=== PATIENT | male | born 1985 | race Caucasian/White ===

== ENCOUNTER 2022-02-13 06:07 | Outpatient (REF) | payer OTHER, SELFPAY ==
[2022-02-13 11:25] LABS: MANUAL DIFF FLAG NO
[2022-02-13 11:34] LABS: Basophils Absolute Auto 0.1 X10*3/uL (0.0-0.2); Basophils Percent Auto 1.1 % (0-2); Eosinophils Absolute Auto 0.3 X10*3/uL (0.0-0.4); Eosinophils Percent Auto 3.5 % (0-4); Hematocrit 46.3 % (42.0-52.0); Hemoglobin 15.2 g/dl (14.0-18.0); Imm Gran Abs Auto 0.05 X10*3/uL (0.00-0.03); Imm Gran Pct Auto 0.6 % (0.0-0.4); Lymphocytes Percent Auto 24.6 % (20-40); Mean Corpuscular HGB Conc 32.8 g/dl (31.0-36.0); Mean Corpuscular Volume 94.3 fL (80.0-98.0); Mean Platelet Volume 9.1 fL (9.4-12.4); Monocytes Absolute Auto 1.3 X10*3/uL (0.1-1.2); Monocytes Percent Auto 16.1 % (2-11); Neutrophils Absolute Auto 4.3 x10*3/uL (2.0-8.3); Neutrophils Percent Auto 54.1 % (45-73); Platelet Count 394 X10*3/uL (160-400); Red Blood Count 4.91 X10*6/uL (4.60-5.80); Red Cell Distribution Width 12.3 % (11.0-16.0)
[2022-02-13 11:55] LABS: Alanine Aminotransferase 66 U/L (0-40); Albumin Level 4.6 g/dL (3.5-5.0); Alkaline Phosphatase 85 U/L (39-117); Anion Gap 15 (12-20); Aspartate Amino Transferase 45 U/L (5-37); Bilirubin Total 1.3 mg/dL (0.0-1.0); Blood Urea Nitrogen 15 mg/dL (9-16); Calcium 9.9 mg/dL (8.4-10.2); Carbon Dioxide 28 mmol/L (22-29); Chloride 101 mmol/L (96-108); Cholesterol 243 mg/dL; Estimated Glomerular Filt Rate > 60; Glucose Fasting 101 mg/dL (60-99); HDL Cholesterol 64 mg/dL; LDL Cholesterol Calculated 148 mg/dl; Potassium 4.7 mmol/L (3.3-5.1); Sodium 139 mmol/L (135-145); Total Protein 8.7 g/dL (6.5-8.0); Triglycerides 159 mg/dL
[2022-02-13 12:06] LABS: Thyroid Stimulating Hormone 1.29 uIU/mL (0.32-4.0)
== END 2022-02-13 06:08 | disposition home or self-care (01) ==
LOC: HO.HMGCLDS 06:07
PROVIDERS: Visit Provider Nurse Practitioner Family
DX: Z00.00 Encounter for general adult medical examination without abnormal findings (principal)
CPT/HCPCS: 36415; 80053; 80061; 84443; 85025

== ENCOUNTER 2022-10-07 08:51 | Outpatient (REF) | payer OTHER, SELFPAY ==
[2022-10-07 12:07] LABS: Alanine Aminotransferase 52 U/L (0-40); Albumin Level 4.5 g/dL (3.5-5.0); Alkaline Phosphatase 79 U/L (39-117); Anion Gap 14 (12-20); Aspartate Amino Transferase 46 U/L (5-37); Bilirubin Total 1.7 mg/dL (0.0-1.0); Blood Urea Nitrogen 18 mg/dL (9-16); Calcium 10.1 mg/dL (8.4-10.2); Carbon Dioxide 27 mmol/L (22-29); Chloride 103 mmol/L (96-108); Estimated Glomerular Filt Rate > 60; Glucose Fasting 99 mg/dL (60-99); Potassium 4.8 mmol/L (3.3-5.1); Sodium 139 mmol/L (135-145); Total Protein 8.8 g/dL (6.5-8.0)
== END 2022-10-07 08:52 | disposition home or self-care (01) ==
LOC: HO.WFDLDS 08:51
PROVIDERS: Visit Provider Nurse Practitioner Family
DX: I10 Essential (primary) hypertension (principal); R74.8 Abnormal levels of other serum enzymes; R73.01 Impaired fasting glucose
CPT/HCPCS: 36415; 80053

== ENCOUNTER 2022-10-29 09:32 | Outpatient (REF) | payer OTHER, SELFPAY ==
--- NOTE | ~2022-10-29 | US_ITS ---
EXAMINATION: US ABDOMEN LIMITED CLINICAL INFORMATION: Abnormal levels of other serum enzymes. COMPARISON: None available. TECHNIQUE: Real-time imaging of the right upper quadrant abdominal viscera. FINDINGS: PANCREAS: No large abnormality in the expected region of the pancreas. Portions of the pancreas were obscured LIVER: The liver is normal in size. The liver contour is normal. There is diffuse increased liver parenchymal echogenicity, consistent with hepatic steatosis. No focal hepatic lesion. There is no intrahepatic biliary duct dilatation seen. GALLBLADDER: Normal. The gallbladder is physiologically distended without evidence of stones, sludge, polyps, wall thickening or pericholecystic fluid. COMMON BILE DUCT: Normal in caliber measuring 0.3 cm in diameter. RIGHT KIDNEY: No convincing perinephric fluid collection. No hydronephrosis. No renal calculi or focal parenchymal lesions. The kidney measures 9.7 cm in maximum dimension. FREE FLUID: None. US/US abdomen limited IMPRESSION: Diffuse increased hepatic density. This can be seen with fatty change No cholelithiasis or biliary dilation
== END 2022-10-29 09:33 | disposition home or self-care (01) ==
LOC: HO.US 09:32
PROVIDERS: Visit Provider Nurse Practitioner Family
DX: R74.8 Abnormal levels of other serum enzymes (principal)
CPT/HCPCS: 76705

== ENCOUNTER 2023-01-14 09:00 | Outpatient (AMB) | payer OTHER, SELFPAY ==
[2023-01-14 09:05] VITALS: BP 116/68; PULSE 105; RESP 14; TEMP 37.2; O2SAT 97; BMI 31.5
--- NOTE | 2023-01-14 09:05 | MHC.PC.OV ---
Vital Signs 01/14/23 09:05 01/14/23 09:36 Height 5 ft 5 in Weight 189 lb 6 oz BMI 31.5 BP 116/68 Blood Pressure Location Rt brachial Position Sitting Respiration 14 Pulse 105 H 88 Pulse Source Pulse Oximeter Auscultation Temp 98.9 F Temp Source Oral Pulse Oximetry (%) 97 Oxygen Delivery Method Room Air Intake Visit Reasons: 3 mos HTN Intake Note: Patient reports he is here for a follow up of high blood pressure. Patient reports no concerns at this time Food Analyst Required: No Accompanied by: Self / Same As Patient Allergies Penicillins Allergy (Mild, Verified 01/14/23 09:29) Hives Medication List - Last Reconciled 01/14/23 by Bg Anderson CNP losartan 50 mg PO DAILY 30 days Tobacco use date assessed: 07/02/22 HPI HPI Comments History of Present Illness Details 37-year-old male presents for hypertension follow-up. He is on losartan which he had admits to taking as prescribed. He denies acute symptoms at this time. He has history of elevated AST, ALT, and total bilirubin. Liver bile duct ultrasound revealed Diffuse increased hepatic density. This can be seen with fatty change. He admits to drinking 3-4 beers 2-3 times weekly. He notes he been drinking that much for 3-4 years. 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 How often do you have a drink containing alcohol?: 2-3 times a week 2. How many drinks containing alcohol do you have on a typical day when you are drinking?: 3 or 4 3. How often do you have six or more drinks on one occasion?: Never Total Score: 4 DARSHANA-7 AMB Questionnaire DARSHANA-7 Date DARSHANA - 7 assessed: 07/02/22 Source: Developed by Drs. James Hollingsworth, Page Casas, Arjun Pond and colleagues, with an educational yue from [employer]. Review of Systems Const Details: Const Denies chills, Denies fatigue, Denies fever(s), Denies headache(s) and Denies weakness ENT Denies dizziness and Denies headache(s) Card Denies chest pain, Denies lightheadedness, Denies dyspnea and Denies other (Palpitations) Resp Denies cough, Denies dyspnea, Denies wheezing and Denies other ( shortness of breath) GI Denies abdominal pain, Denies melena, Denies hematochezia, Denies change in bowel habits, Denies dyspepsia and Denies nausea Denies hematuria and Denies dysuria Musc Denies abnormal gait, Denies myalgias, Denies arthralgias, Denies numbness and Denies tingling Skin/Breast Denies rash, Denies unusual bruising and Denies wounds Neuro Denies abnormal gait, Denies dizziness, Denies headache(s), Denies memory loss, Denies numbness, Denies Sensory deficit (Neuro), Denies tingling and Denies weakness Psych Denies anxiety, Denies depression, Denies memory loss Endo Denies cold intolerance, Denies fatigue, Denies heat intolerance, Denies polydipsia and Denies polyuria Aller/Immun Denies wheezing Physical exam (Primary Care) Vital Signs: Last Vital Signs Temp 98.9 F 01/14/23 09:05 Pulse 105 H 01/14/23 09:05 Resp 14 01/14/23 09:05 BP 116/68 01/14/23 09:05 Pulse Ox 97 01/14/23 09:05 Oxygen Delivery Method Room Air 01/14/23 09:05 BMI result Body Mass Index 31.5 Tobacco/Smoking Status: Tobacco use Status Tobacco use date assessed 07/02/22 01/14/23 09:07 Patient Tobacco Use Status Never used Tobacco 01/14/23 09:07 e-Cigarette/Vaping Use Never Used 01/14/23 09:07 Thrive Assessment: Date of Thrive Assessment Date Thrive assessed 07/02/22 01/14/23 09:07 Const Other: General: no acute distress and well developed Nutritional Appearance: well nourished Orientation/consciousness: patient oriented x3 [facility] Head: Yes normocephalic and Yes atraumatic Eyes General: appearance normal, both eyes and all related structures Pupils: Equal, round and reactive pupils present EOM: EOMs intact bilaterally Resp Effort & Inspection: normal respiratory effort Auscultation: clear to auscultation bilaterally Cardio Rate: regular rate Rhythm: regular rhythm Heart sounds: S1 normal heart sound present, S2 normal heart sound present, no gallops, no murmurs and no rubs GI Palpation (GI): No Abdominal aortic bruit present, Soft to palpation, nontender, No hepatosplenomegaly present and No Rebound tenderness present Auscultation: normal bowel sounds General: Yes no CVA tenderness Back/Spine/Pelvis Back: no CVA tenderness Cervical Spine: cervical ROM normal and No Cervical spine tenderness Thoracic/Lumbar Spine: thoraco-lumbar ROM normal, No pain with thoraco-lumbar ROM, No thoracic spinal tenderness and No lumbar spinal tenderness Extrem General: Yes normal to inspection, No edema and No calf tenderness Skin General: warm and dry. Normal skin color. Normal skin turgor Lesions: no lesions Rashes: no rashes Trauma: no lacerations or abrasions Wounds: no wounds Nails: normal Neuro General: patient oriented x3, gait normal and no focal neuro deficit Cranial nerves: Yes Equal, round and reactive pupils present Cognition (Neuro): normal cognition Gait exam (Neuro): Normal gait present Sensory Exam: No Sensory deficit (Neuro) Psych Appearance: grossly normal Affect: normal affect Attitude: cooperative Thought process: Normal thought process present Assessment and Plan Assessment & Plan (1) HTN, goal below 140/90: Code(s): I10 - Essential (primary) hypertension Plan: Blood pressure is 116/68, within goal of less than 140/90 Continue with current treatment regimen Low-sodium diet encouraged Follow-up in 3 months or return sooner with symptoms or concerns Verbalized understanding and agreed with treatment plan. (2) Hyperlipidemia: Code(s): E78.5 - Hyperlipidemia, unspecified Plan: He has history of slightly elevated triglycerides, total cholesterol and LDL levels. Normal HDL level Advised to limit foods high in saturated fat and avoid foods high trans fat Routine exercise encouraged Verbalized understanding and agreed with treatment plan. (3) Nonalcoholic fatty liver disease: Code(s): K76.0 - Fatty (change of) liver, not elsewhere classified Plan: He has history of elevated AST, ALT, and total bilirubin Liver bile duct ultrasound revealed Diffuse increased hepatic density. This can be seen with fatty change Likely related to fatty liver disease or excessive alcohol intake Routine exercise encouraged Advised to cut down or avoid alcohol consumption Follow-up with symptoms or concerns Verbalized understanding and agreed with treatment plan. (4) Obesity (BMI 30.0-34.9): Code(s): E66.9 - Obesity, unspecified Plan: He weighs 189 lb, BMI is 31.5 Healthy dietary choices and routine exercise encouraged Informed that with reduction may improve his cholesterol levels and liver enzymes May referred to dietitian if desires Advised to follow-up with symptoms or concerns Verbalized understanding and agreed with treatment plan. Coding Level of Care Code Est Pt Level 3 (57059) Diagnoses HTN, goal below 140/90 I10 Hyperlipidemia E78.5 Nonalcoholic fatty liver disease K76.0 Obesity (BMI 30.0-34.9) E66.9
[2023-01-14 09:36] VITALS: PULSE 88
== END 2023-01-14 09:40 | disposition home or self-care (01) ==
PROVIDERS: PCP Nurse Practitioner Family; Visit Provider Nurse Practitioner Family
DX: I10 Essential (primary) hypertension (principal); E78.5 Hyperlipidemia, unspecified; E66.9 Obesity, unspecified; Z68.31 Body mass index [BMI] 31.0-31.9, adult; K76.0 Fatty (change of) liver, not elsewhere classified
CPT/HCPCS: 99213

== ENCOUNTER 2023-06-24 15:40 | Outpatient (AMB) | payer OTHER, SELFPAY ==
--- NOTE | 2023-06-24 15:45 | A.OFFPC_ITS ---
Vital Signs 06/24/23 15:48 Height 5 ft 5 in Weight 189 lb BMI 31.4 BP 118/80 Blood Pressure Location Lt brachial Position Sitting Pulse 95 Pulse Oximetry (%) 96 Oxygen Delivery Method Room Air Intake Visit Reasons: HTN Follow up Intake Note: Patient is here for hypertension follow up. Allergies Penicillins Allergy (Mild, Verified 06/24/23 15:49) Hives Tobacco use date assessed: 06/24/23 Dental Screening Dental Screen Date: 06/24/23 Did you have a dental visit in the last 12 months?: Yes Did you have a dental problem in the last 6 months where you did not have access to dental care?: No Was dental information given to patient?: Patient has dentist HPI HTN Follow up HPI Details 37 y/o male presents to f/u hypertension . Had been started on lisinopril but had complaints of a cough so had been switched to losartan 50mg. Blood pressure today 118/80. He is on losartan 50mg daily. He has a blood pressure monitor at home as well. 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 Cognitive needs: No Hearing needs: No Vision needs: No Questionnaire PHQ-9 Over the last 2 weeks, how often have you been bothered by any of the following problems? 1. Little interest or pleasure in doing things: not at all 2. Feeling down, depressed, or hopeless: not at all 3. Trouble falling or staying asleep, or sleeping too much: not at all 4. Feeling tired or having little energy: not at all 5. Poor appetite or overeating: not at all 6. Feeling bad about yourself - or that you are a failure or have let yourself or your family down: not at all 7. Trouble concentrating on things, such as reading the newspaper or watching television: not at all 8. Moving or speaking so slowly that other people could have noticed. Or the opposite - being so fidgety or restless that you have been moving around a lot more than usual: not at all 9. Thoughts that you would be better off or of hurting yourself in some way: not at all Total score: 0 Depression Screening Interpretation: Negative Depression Screening Done: Yes Source: Developed by Drs. James Hollingsworth, Page Casas, Arjun Pond and colleagues, with an educational yue from [employer]. Thrive Questionnaire Date Thrive assessed: 06/24/23 I am a: Patient What is your living situation today?: I have a steady place to live Within the past 12 months, did the food you bought not last and you didn't have the money to get more?: Never true Within the past 12 months, did you worry whether your food would run out before you got money to buy more?: Never true Do you have trouble paying for medicines?: No Do you have trouble getting transportation to medical appointments?: No Do you have trouble paying your heating and electricity bill?: No Do you have trouble taking care of your child, family member or friend?: No Do you have trouble with day-to-day activities such as bathing, preparing meals, shopping, managing finances, etc.?: No Are you currently unemployed and looking for a job?: No Are you interested in more education?: No THRIVE Score: 0 AUDIT C Alcohol Use Questionnaire (AUDIT-C) 1. How often do you have a drink containing alcohol?: 4 or more times a week 2. How many drinks containing alcohol do you have on a typical day when you are drinking?: 1 or 2 3. How often do you have six or more drinks on one occasion?: Never Total Score: 4 DARSHANA-7 AMB Questionnaire DARSHANA-7 Date DARSHANA - 7 assessed: 06/24/23 Feeling nervous, anxious, or on edge: 0 = Not at all Not being able to stop or control worryin = Not at all Worrying too much about different things: 0 = Not at all Trouble relaxin = Not at all Being so restless that it is hard to sit still: 0 = Not at all Becoming easily annoyed or irritable: 0 = Not at all Feeling afraid as if something awful might happen: 0 = Not at all Total DARSHANA-7 score (0-4 normal; 5-9 mild; 10-14 moderate; 15-21 severe): 0 Source: Developed by Drs. James Hollingsworth, Page Casas, Arjun Pond and colleagues, with an educational yue from [employer]. Review of Systems Const Denies chills, Denies fatigue, Denies fever(s), Denies headache(s) and Denies weakness ENT Denies dizziness and Denies headache(s) Card Denies chest pain, Denies lightheadedness, Denies dyspnea and Denies other (Palpitations) Resp Denies cough, Denies dyspnea, Denies wheezing and Denies other ( shortness of breath) Musc Denies numbness and Denies tingling Neuro Denies dizziness, Denies headache(s), Denies numbness, Denies tingling, Denies paresthesias and Denies weakness Psych Denies anxiety and Denies depression Endo Denies fatigue Aller/Immun Denies wheezing Physical exam (Primary Care) Vital Signs: Last Vital Signs Pulse 95 06/24/23 15:48 BP 118/80 06/24/23 15:48 Pulse Ox 96 06/24/23 15:48 Oxygen Delivery Method Room Air 06/24/23 15:48 BMI result Body Mass Index 31.4 Tobacco/Smoking Status: Tobacco use Status Tobacco use date assessed 06/24/23 06/24/23 15:50 Patient Tobacco Use Status Never used Tobacco 06/24/23 15:46 e-Cigarette/Vaping Use Never Used 06/24/23 15:46 PHQ-9: PHQ-9 Score PHQ-9: Total score 0 06/24/23 15:57 Depression Screening Interpretation: Negative Thrive Assessment: Date of Thrive Assessment Date Thrive assessed 06/24/23 06/24/23 15:57 Const General: no acute distress and well developed Nutritional Appearance: well nourished and obese Orientation/consciousness: patient oriented x3 [facility] Head: Yes normocephalic and Yes atraumatic Eyes General: appearance normal, both eyes and all related structures Pupils: Equal, round and reactive pupils present EOM: EOMs intact bilaterally Resp Effort & Inspection: normal respiratory effort Auscultation: clear to auscultation bilaterally Cardio Rate: regular rate Rhythm: regular rhythm Heart sounds: S1 normal heart sound present, S2 normal heart sound present, no gallops, no murmurs and no rubs Neuro General: patient oriented x3 and gait normal Cranial nerves: Yes Equal, round and reactive pupils present Psych Affect: normal affect Assessment and Plan Assessment & Plan (1) HTN, goal below 140/90: Code(s): I10 - Essential (primary) hypertension Plan: Blood?pressure?is?well?controlled.??Goal?is?less?than?140/90 Continue?losartan Encouraged?weight?loss (2) Nonalcoholic fatty liver disease: Code(s): K76.0 - Fatty (change of) liver, not elsewhere classified Plan: Patient?has?had?elevated?liver?enzymes?and?ultrasound?showed?hepatic?steatosis Encouraged?weight?loss?and?good?hydration Will?follow (3) Obesity (BMI 30.0-34.9): Code(s): E66.9 - Obesity, unspecified Plan: Discussed?weight?loss?with?patient. As?above,?patient?has?had?elevated?liver?enzymes?and?hepatic?steatosis?so?I?have ?recommended?he?work?on?a?5-10?lb?weight?loss?between?now?and?his?next?visit Coding Level of Care Code Est Pt Level 4 (86412) Diagnoses HTN, goal below 140/90 I10 Nonalcoholic fatty liver disease K76.0 Obesity (BMI 30.0-34.9) E66.9
[2023-06-24 15:48] VITALS: BP 118/80; PULSE 95; O2SAT 96; BMI 31.4
== END 2023-06-24 16:18 | disposition home or self-care (01) ==
PROVIDERS: PCP Nurse Practitioner Family; Visit Provider Family Medicine
DX: I10 Essential (primary) hypertension (principal); K76.0 Fatty (change of) liver, not elsewhere classified; E66.9 Obesity, unspecified; Z68.31 Body mass index [BMI] 31.0-31.9, adult
CPT/HCPCS: 99214

== ENCOUNTER 2023-10-26 08:51 | Outpatient (REF) | payer OTHER, SELFPAY ==
[2023-10-26 11:57] LABS: Estimated Average Glucose 100 mg/dL; Hemoglobin A1c % 5.1 % (<6.0)
[2023-10-26 12:02] LABS: Alanine Aminotransferase 29 U/L (0-40); Albumin Level 4.2 g/dL (3.5-5.0); Alkaline Phosphatase 65 U/L (39-117); Anion Gap 11 (12-20); Aspartate Amino Transferase 40 U/L (5-37); Bilirubin Total 2.8 mg/dL (0.0-1.0); Blood Urea Nitrogen 16 mg/dL (9-16); Calcium 9.4 mg/dL (8.4-10.2); Carbon Dioxide 28 mmol/L (22-29); Chloride 104 mmol/L (96-108); Cholesterol 255 mg/dL (<200); Estimated Glomerular Filt Rate > 60; Glucose Fasting 102 mg/dL (60-99); HDL Cholesterol 61 mg/dL (>40); LDL Cholesterol Calculated 115 mg/dL (<100); Potassium 3.8 mmol/L (3.3-5.1); Sodium 139 mmol/L (135-145); Total Protein 8.4 g/dL (6.5-8.0); Triglycerides 399 mg/dL (<150)
[2023-10-26 12:18] LABS: TSH reflex Free T4 1.31 uIU/mL (0.32-4.0)
== END 2023-10-26 08:52 | disposition home or self-care (01) ==
LOC: HO.WFDLDS 08:51
PROVIDERS: Visit Provider Family Medicine
DX: Z00.00 Encounter for general adult medical examination without abnormal findings (principal); R73.01 Impaired fasting glucose; I10 Essential (primary) hypertension
CPT/HCPCS: 36415; 80053; 80061; 83036; 84443

== ENCOUNTER 2023-10-28 09:04 | Outpatient (AMB) | payer OTHER, SELFPAY ==
[2023-10-28 09:16] VITALS: BP 144/90; PULSE 85; RESP 14; TEMP 36.4; O2SAT 97; BMI 30.8
--- NOTE | 2023-10-28 09:16 | A.OFFPC_ITS ---
Vital Signs 10/28/23 09:16 Height 5 ft 5 in Weight 185 lb 6 oz BMI 30.8 BP 144/90 H Blood Pressure Location Rt brachial Position Sitting Respiration 14 Pulse 85 Pulse Source Pulse Oximeter Temp 97.5 F Temp Source Temporal Artery Scan Pulse Oximetry (%) 97 Oxygen Delivery Method Room Air Intake Visit Reasons: Annual PE Intake Note: Patient does not have any current concerns. 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 Required: No Accompanied by: Self / Same As Patient Allergies Penicillins Allergy (Mild, Verified 10/28/23 09:20) Hives Medication List - Last Reconciled 10/28/23 by Dennis Neves MD losartan 50 mg PO DAILY 30 days Tobacco use date assessed: 10/28/23 Dental Screening Dental Screen Date: 10/28/23 Did you have a dental visit in the last 12 months?: Yes Did you have a dental problem in the last 6 months where you did not have access to dental care?: No Was dental information given to patient?: Patient has dentist HPI Annual PE HPI Details 38 y/o male presents for a CPE with f/u labs and health maintenance. Labs were drawn 10/26/23. Reviewed labs with pt. Elevated fasting glucose of 102. A1c 5.1%. Elevated AST of 40. Triglycerides 399. TC 255. LDL 115. HDL 61. Pt reports ongoing life stressors. He declines a therapist today. Blood pressure today 144/90. He is on losartan 50mg daily. 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 1. Little interest or pleasure in doing things: not at all 2. Feeling down, depressed, or hopeless: not at all 3. Trouble falling or staying asleep, or sleeping too much: not at all 4. Feeling tired or having little energy: not at all 5. Poor appetite or overeating: not at all 6. Feeling bad about yourself - or that you are a failure or have let yourself or your family down: not at all 7. Trouble concentrating on things, such as reading the newspaper or watching television: not at all 8. Moving or speaking so slowly that other people could have noticed. Or the opposite - being so fidgety or restless that you have been moving around a lot more than usual: not at all 9. Thoughts that you would be better off or of hurting yourself in some way: not at all Total score: 0 Depression Screening Interpretation: Negative Depression Screening Done: Yes 40743 - PHQ-9 Billing: Yes Source: Developed by Drs. James Hollingsworth, Page Casas, Arjun Pond and colleagues, with an educational yue from [employer]. Thrive Questionnaire Date Thrive assessed: 10/28/23 I am a: Patient What is your living situation today?: I have a steady place to live Within the past 12 months, did the food you bought not last and you didn't have the money to get more?: Never true Within the past 12 months, did you worry whether your food would run out before you got money to buy more?: Never true Do you have trouble paying for medicines?: No Do you have trouble getting transportation to medical appointments?: No Do you have trouble paying your heating and electricity bill?: No Do you have trouble taking care of your child, family member or friend?: No Do you have trouble with day-to-day activities such as bathing, preparing meals, shopping, managing finances, etc.?: No Are you currently unemployed and looking for a job?: No Are you interested in more education?: No Please select the resources that you would like help with: None Currently or been in a relationship where the following occur: No concerns reported THRIVE Score: 0 AUDIT C Alcohol Use Questionnaire (AUDIT-C) 1. How often do you have a drink containing alcohol?: 4 or more times a week 2. How many drinks containing alcohol do you have on a typical day when you are drinking?: 3 or 4 3. How often do you have six or more drinks on one occasion?: Never Total Score: 5 DARSHANA-7 AMB Questionnaire DARSHANA-7 Date DARSHANA - 7 assessed: 10/28/23 Feeling nervous, anxious, or on edge: 0 = Not at all Not being able to stop or control worryin = Not at all Worrying too much about different things: 0 = Not at all Trouble relaxin = Not at all Being so restless that it is hard to sit still: 0 = Not at all Becoming easily annoyed or irritable: 0 = Not at all Feeling afraid as if something awful might happen: 0 = Not at all Total DARSHANA-7 score (0-4 normal; 5-9 mild; 10-14 moderate; 15-21 severe): 0 Source: Developed by Drs. James Hollingsworth, Page Casas, Arjun Pond and colleagues, with an educational yue from [employer]. DARSHANA-7 Assessment Billing DARSHANA-7 Assessment Tool: DARSHANA-7 Assessment 66853 Review of Systems Const Denies chills, Denies fatigue, Denies fever(s), Denies headache(s) and Denies weakness Eyes Denies change in vision ENT Denies dizziness, Denies headache(s), Denies hearing loss, Denies nasal congestion, Denies sinus pain, Denies sinus pressure and Denies sore throat Card Denies chest pain, Denies lightheadedness, Denies dyspnea and Denies other (palpitations) Resp Denies cough, Denies dyspnea and Denies wheezing GI Denies abdominal pain, Denies melena, Denies hematochezia, Denies change in bowel habits, Denies dyspepsia and Denies nausea Denies hematuria and Denies dysuria Musc Denies abnormal gait, Denies myalgias, Denies arthralgias, Denies numbness and Denies tingling Skin/Breast Denies rash, Denies unusual bruising and Denies wounds Neuro Denies abnormal gait, Denies dizziness, Denies headache(s), Denies memory loss, Denies numbness, Denies Sensory deficit (Neuro), Denies tingling and Denies we akness Psych Denies anxiety, Denies depression and Denies memory loss Endo Denies cold intolerance, Denies fatigue, Denies heat intolerance, Denies po lydipsia and Denies polyuria Loc/Lymph Denies easy bleeding and Denies easy bruising Aller/Immun Denies wheezing Physical exam (Primary Care) Vital Signs: Last Vital Signs Temp 97.5 F 10/28/23 09:16 Pulse 85 10/28/23 09:16 Resp 14 10/28/23 09:16 BP 144/90 H 10/28/23 09:16 Pulse Ox 97 10/28/23 09:16 Oxygen Delivery Method Room Air 10/28/23 09:16 BMI result Body Mass Index 30.8 Tobacco/Smoking Status: Tobacco use Status Tobacco use date assessed 10/28/23 10/28/23 09:22 Patient Tobacco Use Status Never used Tobacco 10/28/23 09:16 e-Cigarette/Vaping Use Never Used 10/28/23 09:16 PHQ-9: PHQ-9 Score PHQ-9: Total score 0 10/28/23 09:45 Depression Screening Interpretation: Negative Thrive Assessment: Date of Thrive Assessment Date Thrive assessed 10/28/23 10/28/23 09:22 Currently or been in a relationship where the following occur: No concerns reported Const General: no acute distress, well developed, alert and awake Nutritional Appearance: well nourished Orientation/consciousness: patient oriented x3 HENMT Head: Yes normocephalic and Yes atraumatic Ears: hearing grossly normal bilaterally and TM's normal bilaterally General nose exam: Normal external nose present and Normal nares present Mouth: Normal oral and palatal mucosa present and moist mucous membranes Teeth and gingiva: dentition normal Throat: Yes posterior oropharynx normal Eyes General: appearance normal, both eyes and all related structures Pupils: Equal, round and reactive pupils present and Pupil accommodation reflex normal EOM: EOMs intact bilaterally Neck Neck: Yes normal visual inspection, Yes no lymphadenopathy and Yes trachea midline Thyroid: Thyroid normal Carotids: no bruits Lymphatic: no lymphadenopathy noted Chest Chest palpation & inspection: normal inspection of the chest Resp Effort & Inspection: normal respiratory effort Auscultation: clear to auscultation bilaterally Cardio Rate: regular rate Rhythm: regular rhythm Heart sounds: S1 normal heart sound present, S2 normal heart sound present, no gallops, no murmurs and no rubs Bruits: no abdominal aortic bruits and no carotid bruits GI Palpation (GI): No Abdominal aortic bruit present, Soft to palpation, nontender, No hepatosplenomegaly present and No Rebound tenderness present Auscultation: normal bowel sounds General: Yes no CVA tenderness Back/Spine/Pelvis Back: no CVA tenderness Cervical Spine: cervical ROM normal and No Cervical spine tenderness Thoracic/Lumbar Spine: thoraco-lumbar ROM normal, No pain with thoraco-lumbar ROM, No thoracic spinal tenderness and No lumbar spinal tenderness Skin Lesions: no lesions Rashes: no rashes Trauma: no lacerations or abrasions Wounds: no wounds Nails: normal Neuro General: patient oriented x3 Cranial nerves: Yes Equal, round and reactive pupils present Cognition (Neuro): normal cognition Gait exam (Neuro): Normal gait present Motor exam (neuro): 5/5 motor strength present throughout Sensory Exam: No Sensory deficit (Neuro) Deep tendon reflexes (DTR's): Right patellar reflex intensity grade: 2+ and Left patellar reflex intensity grade: 2+ Extrem General: Yes normal to inspection and No edema Psych Appearance: grossly normal Affect: normal affect Attitude: cooperative Thought process: Normal thought process present Assessment and Plan Assessment & Plan (1) Adult general medical exam: Code(s): Z00.00 - Encounter for general adult medical examination without abnormal findings Plan: 38-year-old?male?presents?for?an?complete?physical?exam Encouraged?healthy?diet?with?active?lifestyle?and?plenty?of?exercise (2) Hypertriglyceridemia: Code(s): E78.1 - Pure hyperglyceridemia Plan: Triglycerides?are?too?high Start?fenofibrate Will?recheck?at?next?lab?draw (3) HTN, goal below 140/90: Code(s): I10 - Essential (primary) hypertension Plan: Blood?pressure?is?a?little?too?high.??Goal?is?less?than?140/90 Has?been?controlled?previously.??Will?recheck?at?next?visit?and?if?still?elevate d,?will?adjust?his?medications. He?can?check?his?blood?pressures?at?[facility]?and?he?will?let?me?know?if?it?is?too?high?there?as?well. (4) Elevated liver enzymes: Code(s): R74.8 - Abnormal levels of other serum enzymes Plan: Mild?elevation?in?liver?enzymes.??He?has?been?losing?weight?and?I?encouraged?him ?to?continue?this. Liver?enzymes?have?been?decreasing. (5) Elevated fasting glucose: Code(s): R73.01 - Impaired fasting glucose Plan: A1c?is?in?normal?range Likely?mild?insulin?resistance. Will?continue?to?monitor Orders: Orders Lipid Panel Today E78.1 - Pure hyperglyceridemia Comprehensive [place]. Panel Fast Today E78.1 - Pure hyperglyceridemia Medications: New fenofibrate 160 mg PO DAILY 30 days 30 tabs 2RF Coding Level of Care Code Est Pt Level 3 (32301) Est Pt Prev Care 18-39y(92003) Diagnoses Adult general medical exam Z00.00 Hypertriglyceridemia E78.1 HTN, goal below 140/90 I10 Elevated liver enzymes R74.8 Elevated fasting glucose R73.01 Additional Codes DARSHANA-7 Assessment Billing - DARSHANA-7 Assessment Tool: DARSHANA-7 Assessment 38834 ([id number])
== END 2023-10-28 10:21 | disposition home or self-care (01) ==
PROVIDERS: PCP Family Medicine; Visit Provider Family Medicine
DX: Z00.00 Encounter for general adult medical examination without abnormal findings (principal); E78.1 Pure hyperglyceridemia; I10 Essential (primary) hypertension; R74.8 Abnormal levels of other serum enzymes; R73.01 Impaired fasting glucose
CPT/HCPCS: 99213; 99395

== ENCOUNTER 2024-01-27 08:43 | Outpatient (REF) | payer OTHER, SELFPAY ==
[2024-01-27 12:05] LABS: Appearance Urine Clear; Color Urine Yellow; Glucose Urine UA Negative (Negative); Leukocyte Esterase Urine Negative (Negative); Nitrite Urine Negative (Negative); Urine Blood Negative (Negative); Urine Ketones Negative (Negative); Urine Protein Negative (Neg-Trace)
[2024-01-27 12:13] LABS: Alanine Aminotransferase 28 U/L (0-40); Albumin Level 4.3 g/dL (3.5-5.0); Alkaline Phosphatase 61 U/L (39-117); Anion Gap 9 (12-20); Aspartate Amino Transferase 32 U/L (5-37); Bilirubin Total 0.8 mg/dL (0.0-1.0); Blood Urea Nitrogen 14 mg/dL (9-16); Calcium 9.9 mg/dL (8.4-10.2); Carbon Dioxide 30 mmol/L (22-29); Chloride 104 mmol/L (96-108); Cholesterol 223 mg/dL (<200); Estimated Glomerular Filt Rate > 60; Glucose Fasting 100 mg/dL (60-99); HDL Cholesterol 74 mg/dL (>40); LDL Cholesterol Calculated 110 mg/dL (<100); Potassium 4.4 mmol/L (3.3-5.1); Sodium 139 mmol/L (135-145); Total Protein 8.3 g/dL (6.5-8.0); Triglycerides 198 mg/dL (<150)
[2024-01-27 12:32] LABS: Creatinine Urine 234.63 mg/dL; Microalbum/Creatinine Ratio Ur 3.4 ug/mg cr (<30)
== END 2024-01-27 08:44 | disposition home or self-care (01) ==
LOC: HO.WFDLDS 08:43
PROVIDERS: Visit Provider Family Medicine
DX: Z00.00 Encounter for general adult medical examination without abnormal findings (principal); I10 Essential (primary) hypertension; E78.1 Pure hyperglyceridemia
CPT/HCPCS: 36415; 80053; 80061; 81003; 82043; 82570

== ENCOUNTER 2024-02-17 09:40 | Outpatient (AMB) | payer OTHER, SELFPAY ==
--- NOTE | 2024-02-17 10:23 | MHC.PC.OV ---
Vital Signs 02/17/24 10:24 Height 5 ft 5 in Weight 186 lb 2 oz BMI 31.0 BP 148/87 H Blood Pressure Location Rt brachial Position Sitting Respiration 16 Pulse 86 Pulse Source Pulse Oximeter Temp 99.7 F Temp Source Temporal Artery Scan Pulse Oximetry (%) 97 Oxygen Delivery Method Room Air Intake Visit Reasons: f/u hypertriglyceridemia, hypertension Intake Note: f/u for hypertriglyceridemia and htn Allergies Penicillins Allergy (Mild, Verified 02/17/24 10:23) Hives Medication List - Last Reconciled 02/17/24 by Dennis Neves MD fenofibrate 160 mg PO DAILY 30 days losartan 50 mg PO DAILY 30 days Tobacco use date assessed: 10/28/23 Dental Screening Dental Screen Date: 10/28/23 HPI f/u hypertriglyceridemia, hypertension HPI Details 38 y/o male presents to f/u hypertriglyceridemia, hypertension. Notes he is tolerating fenofibrate 160mg daily. Labs drawn 01/27/24. Reviwed labs with pt. Triglycerides improved from 399 to 198. TC 223. LDL 110. HDL 74. Blood pressure today 148/87, 86p. He is on losartan 50mg daily. HPI Comments History of Present Illness Details Documentation assistance for Dennis Neves MD, was provided by Brandon Moore,? Film Process Operator on 02/17/2024 at 10:42 AM HEMA. I, Dr. Neves, have read, observed, and verified documentation. 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 1. Little interest or pleasure in doing things: not at all 2. Feeling down, depressed, or hopeless: not at all 3. Trouble falling or staying asleep, or sleeping too much: not at all 4. Feeling tired or having little energy: not at all 5. Poor appetite or overeating: not at all 6. Feeling bad about yourself - or that you are a failure or have let yourself or your family down: not at all 7. Trouble concentrating on things, such as reading the newspaper or watching television: not at all 8. Moving or speaking so slowly that other people could have noticed. Or the opposite - being so fidgety or restless that you have been moving around a lot more than usual: not at all 9. Thoughts that you would be better off or of hurting yourself in some way: not at all Total score: 0 Source: Developed by Drs. James Hollingsworth, Page Casas, Arjun Pond and colleagues, with an educational yue from [employer]. Thrive Questionnaire Date Thrive assessed: 10/28/23 I am a: Patient What is your living situation today?: I have a steady place to live Within the past 12 months, did the food you bought not last and you didn't have the money to get more?: I choose not to answer this question Within the past 12 months, did you worry whether your food would run out before you got money to buy more?: I choose not to answer this question Do you have trouble paying for medicines?: I choose not to answer this question Do you have trouble getting transportation to medical appointments?: No Do you have trouble paying your heating and electricity bill?: No Do you have trouble taking care of your child, family member or friend?: No Do you have trouble with day-to-day activities such as bathing, preparing meals, shopping, managing finances, etc.?: No Are you currently unemployed and looking for a job?: No Are you interested in more education?: No Please select the resources that you would like help with: None Currently or been in a relationship where the following occur: I choose not to answer THRIVE Score: 0 AUDIT C Alcohol Use Questionnaire (AUDIT-C) 1. How often do you have a drink containing alcohol?: 2-3 times a week Total Score: 3 DARSHANA-7 AMB Questionnaire DARSHANA-7 Date DARSHANA - 7 assessed: 10/28/23 Feeling nervous, anxious, or on edge: 0 = Not at all Not being able to stop or control worryin = Not at all Worrying too much about different things: 0 = Not at all Trouble relaxin = Not at all Being so restless that it is hard to sit still: 0 = Not at all Becoming easily annoyed or irritable: 0 = Not at all Feeling afraid as if something awful might happen: 0 = Not at all Total DARSHANA-7 score (0-4 normal; 5-9 mild; 10-14 moderate; 15-21 severe): 0 Source: Developed by Drs. James Hollingsworth, Page Casas, Arjun Pond and colleagues, with an educational yue from [employer]. Review of Systems Const Denies chills, Denies fatigue, Denies fever(s), Denies headache(s) and Denies weakness ENT Denies dizziness and Denies headache(s) Card Denies dyspnea Resp Denies cough, Denies dyspnea, Denies wheezing and Denies other (shortness of breath) Musc Denies numbness and Denies tingling Neuro Denies dizziness, Denies headache(s), Denies numbness, Denies tingling and Denies weakness Psych Denies anxiety and Denies depression Endo Denies fatigue Aller/Immun Denies wheezing Physical exam (Primary Care) Vital Signs: Last Vital Signs Temp 99.7 F 02/17/24 10:24 Pulse 86 02/17/24 10:24 Resp 16 02/17/24 10:24 BP 148/87 H 02/17/24 10:24 Pulse Ox 97 02/17/24 10:24 Oxygen Delivery Method Room Air 02/17/24 10:24 BMI result Body Mass Index 31.0 Tobacco/Smoking Status: Tobacco use Status Tobacco use date assessed 10/28/23 02/17/24 10:27 Patient Tobacco Use Status Never used Tobacco 02/17/24 10:27 e-Cigarette/Vaping Use Never Used 02/17/24 10:27 PHQ-9: PHQ-9 Score PHQ-9: Total score 0 02/17/24 10:27 Thrive Assessment: Date of Thrive Assessment Date Thrive assessed 10/28/23 02/17/24 10:27 Currently or been in a relationship where the following occur: I choose not to answer Const General: well developed; No acute distress Nutritional Appearance: well nourished Orientation/consciousness: patient oriented x3 HENMT Head: Yes normocephalic and Yes atraumatic Eyes General: appearance normal, both eyes and all related structures Pupils: Equal, round and reactive pupils present EOM: EOMs intact bilaterally Resp Effort & Inspection: normal respiratory effort Auscultation: clear to auscultation bilaterally Cardio Rate: regular rate Rhythm: regular rhythm Heart sounds: S1 normal heart sound present, S2 normal heart sound present, no gallops, no murmurs and no rubs Neuro General: patient oriented x3 and gait normal Cranial nerves: Yes Equal, round and reactive pupils present Psych Affect: normal affect Coding Level of Care Code Est Pt Level 3 (99956) Diagnoses Hypertriglyceridemia E78.1 HTN, goal below 140/90 I10 Elevated fasting glucose R73.01 Assessment & Plan Assessment & Plan (1) Hypertriglyceridemia: Code(s): E78.1 - Pure hyperglyceridemia Category: Medical Plan: Triglycerides?much?improved?on?fenofibrate Continue?as?prescribed Work?at?a?diet?lower?in?saturated?fats?and?cholesterol Work?at?weight?loss (2) HTN, goal below 140/90: Code(s): I10 - Essential (primary) hypertension Category: Medical Plan: Blood?pressure?is?still?too?high Increase?losartan (3) Elevated fasting glucose: Code(s): R73.01 - Impaired fasting glucose Category: Medical Plan A1c?5.3%?is?still?in?normal?range?though?higher?than?last?check;?5.1% Encouraged?weight?loss?and?diet?lower?in?sugars?and?starches Medications: Changed From losartan 50 mg PO DAILY 30 days 30 tabs 4RF To losartan 100 mg PO DAILY 30 days 30 tabs 4RF From fenofibrate 160 mg PO DAILY 30 days 30 tabs 2RF To fenofibrate 160 mg PO DAILY 90 days 90 tabs 3RF
[2024-02-17 10:24] VITALS: BP 148/87; PULSE 86; RESP 16; TEMP 37.6; O2SAT 97; BMI 31.0
== END 2024-02-17 10:49 | disposition home or self-care (01) ==
LOC: HO.HMCFM 09:41
PROVIDERS: PCP Family Medicine; Visit Provider Family Medicine
DX: E78.1 Pure hyperglyceridemia (principal); I10 Essential (primary) hypertension; R73.01 Impaired fasting glucose

== ENCOUNTER → 2024-02-17 09:40 | Outpatient (BNVA) | payer OTHER, SELFPAY | PROVIDERS: PCP Family Medicine; Visit Provider Family Medicine | DX: E78.1 Pure hyperglyceridemia (principal); I10 Essential (primary) hypertension; R73.01 Impaired fasting glucose; Z79.899 Other long term (current) drug therapy | CPT/HCPCS: 83036; 96127 ==

== ENCOUNTER 2024-08-31 13:27 | Outpatient (AMB) | payer OTHER, SELFPAY ==
--- NOTE | 2024-08-31 13:32 | MHC.PC.OV ---
Vital Signs 08/31/24 13:35 Height 5 ft 5 in Weight 184 lb 2 oz BMI 30.6 BP 132/80 Blood Pressure Location Lt brachial Position Sitting Respiration 14 Temp 98.0 F Temp Source Oral Pulse Oximetry (%) 99 Oxygen Delivery Method Room Air Intake Visit Reasons: f/u hypertension, HLD Intake Note: patient is scehduled for follow-up for hypertension,HLD and has no concerns. Allergies Penicillins Allergy (Mild, Verified 08/31/24 13:34) Hives Medication List - Last Reconciled 08/31/24 by Dennis Neves MD fenofibrate 160 mg PO DAILY 90 days losartan 100 mg PO DAILY 30 days Tobacco use date assessed: 08/31/24 Dental Screening Dental Screen Date: 08/31/24 Did you have a dental visit in the last 12 months?: Yes Did you have a dental problem in the last 6 months where you did not have access to dental care?: No Was dental information given to patient?: No HPI f/u hypertension, HLD HPI Details 39 y/o male presents to f/u HTN, HLD. Blood pressure today 132/80. He is on losartan 100mg. He is on fenofibrate for his lipids. No recent labs to review. HPI Comments History of Present Illness Details Documentation assistance for Dennis Neves MD, was provided by Brandon Moore, [employer] on 08/31/2024 at 1:58 PM EST. I, Dr. Neves, have read, observed, and verified documentation. ? 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 1. Little interest or pleasure in doing things: not at all 2. Feeling down, depressed, or hopeless: not at all 3. Trouble falling or staying asleep, or sleeping too much: not at all 4. Feeling tired or having little energy: not at all 5. Poor appetite or overeating: not at all 6. Feeling bad about yourself - or that you are a failure or have let yourself or your family down: not at all 7. Trouble concentrating on things, such as reading the newspaper or watching television: not at all 8. Moving or speaking so slowly that other people could have noticed. Or the opposite - being so fidgety or restless that you have been moving around a lot more than usual: not at all 9. Thoughts that you would be better off or of hurting yourself in some way: not at all Total score: 0 Source: Developed by Drs. James Hollingsworth, Page Casas, Arjun Pond and colleagues, with an educational yue from [employer]. Thrive Questionnaire Date Thrive assessed: 05/17/24 I am a: Patient What is your living situation today?: I have a steady place to live Within the past 12 months, did the food you bought not last and you didn't have the money to get more?: I choose not to answer this question Within the past 12 months, did you worry whether your food would run out before you got money to buy more?: I choose not to answer this question Do you have trouble paying for medicines?: I choose not to answer this question Do you have trouble getting transportation to medical appointments?: No Do you have trouble paying your heating and electricity bill?: No Do you have trouble taking care of your child, family member or friend?: No Do you have trouble with day-to-day activities such as bathing, preparing meals, shopping, managing finances, etc.?: No Are you currently unemployed and looking for a job?: No Are you interested in more education?: No Please select the resources that you would like help with: None Currently or been in a relationship where the following occur: No concerns reported THRIVE Score: 0 DARSHANA-7 AMB Questionnaire DARSHANA-7 Date DARSHANA - 7 assessed: 10/28/23 Source: Developed by Drs. James Hollingsworth, Page Casas, Arjun Pond and colleagues, with an educational yue from [employer]. Review of Systems Const Denies chills, Denies fatigue, Denies fever(s), Denies headache(s) and Denies weakness ENT Denies dizziness and Denies headache(s) Card Denies dyspnea Resp Denies cough, Denies dyspnea, Denies wheezing and Denies other (shortness of breath) Musc Denies numbness and Denies tingling Neuro Denies dizziness, Denies headache(s), Denies numbness, Denies tingling and Denies weakness Psych Denies anxiety and Denies depression Endo Denies fatigue Aller/Immun Denies wheezing Physical exam (Primary Care) Vital Signs: Last Vital Signs Temp 98.0 F 08/31/24 13:35 Resp 14 08/31/24 13:35 BP 132/80 08/31/24 13:35 Pulse Ox 99 08/31/24 13:35 Oxygen Delivery Method Room Air 08/31/24 13:35 BMI result Body Mass Index 30.6 Tobacco/Smoking Status: Tobacco use Status Tobacco use date assessed 08/31/24 08/31/24 13:40 Patient Tobacco Use Status Never used Tobacco 08/31/24 13:40 e-Cigarette/Vaping Use Never Used 08/31/24 13:40 PHQ-9: PHQ-9 Score PHQ-9: Total score 0 08/31/24 13:40 Thrive Assessment: Date of Thrive Assessment Date Thrive assessed 05/17/24 08/31/24 13:40 Currently or been in a relationship where the following occur: No concerns reported Const General: well developed; No acute distress Nutritional Appearance: well nourished Orientation/consciousness: patient oriented x3 HENMT Head: Yes normocephalic and Yes atraumatic Eyes General: appearance normal, both eyes and all related structures Pupils: Equal, round and reactive pupils present EOM: EOMs intact bilaterally Resp Effort & Inspection: normal respiratory effort Neuro General: patient oriented x3 and gait normal Cranial nerves: Yes Equal, round and reactive pupils present Psych Affect: normal affect Coding Level of Care Code Est Pt Level 3 (63861) Diagnoses HTN, goal below 140/90 I10 Hyperlipidemia E78.5 Assessment & Plan Assessment & Plan (1) HTN, goal below 140/90: Code(s): I10 - Essential (primary) hypertension Category: Medical Plan: Blood?pressure?132/80.??Controlled.??Goal?is?less?than?140/90 He?notes?that?his?blood?pressures?at?home?are?even?better?with?systolic?blood?pressures?in?the?120s Continue?current?medication (2) Hyperlipidemia: Code(s): E78.5 - Hyperlipidemia, unspecified Category: Medical Plan: Taking?fenofibrate?as?prescribed Will?follow-up?on?lipids?at?his?upcoming?exam?in?October Orders: Orders Lipid Panel Today Z00.00 - Encounter for general adult medical examination without abnormal findings Prostate Specific Antigen Scr Today Z12.5 - Encounter for screening for malignant neoplasm of prostate Comprehensive [place]. Panel Fast Today Z00.00 - Encounter for general adult medical examination without abnormal findings TSH reflex Free T4 Today Z00.00 - Encounter for general adult medical examination without abnormal findings UA CC w/rflx Micro + Cult Today Z00.00 - Encounter for general adult medical examination without abnormal findings Microalbumin, Random (w Creat) Today I10 - Essential (primary) hypertension Medications: Changed From losartan 100 mg PO DAILY 30 days 30 tabs 4RF To losartan 100 mg PO DAILY 90 days 90 tabs 3RF
[2024-08-31 13:35] VITALS: BP 132/80; RESP 14; TEMP 36.7; O2SAT 99; BMI 30.6
== END 2024-08-31 14:02 | disposition home or self-care (01) ==
LOC: HO.HMCFM 13:28
PROVIDERS: PCP Family Medicine; Visit Provider Family Medicine
DX: I10 Essential (primary) hypertension (principal); E78.5 Hyperlipidemia, unspecified

== ENCOUNTER → 2024-08-31 13:27 | Outpatient (BNVA) | payer OTHER, SELFPAY | PROVIDERS: PCP Family Medicine; Visit Provider Family Medicine ==

== ENCOUNTER 2024-10-26 09:17 | Outpatient (REF) | payer OTHER, SELFPAY ==
[2024-10-26 11:47] LABS: Appearance Urine Clear; Glucose Urine UA Negative (Negative); PH 5.5 (5.0-9.0); Specific Gravity - Urine 1.020 (1.005-1.025)
[2024-10-26 12:18] LABS: Alanine Aminotransferase 22 U/L (0-40); Albumin Level 4.5 g/dL (3.5-5.0); Alkaline Phosphatase 45 U/L (39-117); Anion Gap 11 (12-20); Aspartate Amino Transferase 29 U/L (5-37); Blood Urea Nitrogen 15 mg/dL (9-16); Calcium 9.5 mg/dL (8.4-10.2); Carbon Dioxide 25 mmol/L (22-29); Chloride 105 mmol/L (96-108); Cholesterol 220 mg/dL (<200); Estimated Glomerular Filt Rate > 60; HDL Cholesterol 66 mg/dL (>40); Potassium 4.1 mmol/L (3.3-5.1); Sodium 137 mmol/L (135-145); Total Protein 8.4 g/dL (6.5-8.0); Triglycerides 218 mg/dL (<150)
[2024-10-26 12:30] LABS: Microalbum/Creatinine Ratio Ur 6.1 ug/mg cr (<30)
== END 2024-10-26 09:18 | disposition home or self-care (01) ==
LOC: HO.WFDLDS 09:17
PROVIDERS: Visit Provider Family Medicine
DX: Z00.00 Encounter for general adult medical examination without abnormal findings (principal); Z12.5 Encounter for screening for malignant neoplasm of prostate; I10 Essential (primary) hypertension
CPT/HCPCS: 36415; 80053; 80061; 81003; 82043; 82570; 84153; 84443

== ENCOUNTER 2024-11-02 08:56 | Outpatient (AMB) | payer OTHER, SELFPAY ==
--- NOTE | 2024-11-02 09:01 | A.OFFPC_ITS ---
Vital Signs 11/02/24 09:06 Height 5 ft 5 in Weight 178 lb 4 oz BMI 29.7 BP 124/82 Blood Pressure Location Lt brachial Position Sitting Respiration 14 Pulse 108 H Pulse Source Pulse Oximeter Temp 98.5 F Pulse Oximetry (%) 98 Oxygen Delivery Method Room Air Intake Visit Reasons: annual - see comments Intake Note: Gustavo presents in the office today for his annual physical. Allergies Penicillins Allergy (Mild, Verified 11/02/24 09:02) Hives Medication List - Last Reconciled 11/02/24 by Dennis Neves MD fenofibrate 160 mg PO DAILY 90 days losartan 100 mg PO DAILY 90 days Tobacco use date assessed: 11/02/24 Dental Screening Dental Screen Date: 11/02/24 Did you have a dental visit in the last 12 months?: Yes Did you have a dental problem in the last 6 months where you did not have access to dental care?: No Was dental information given to patient?: Patient has dentist HPI annual - see comments HPI Details 39 y/o male presents for a CPE with f/u labs and health maint. Labs drawn 10/26/24. Reviewed labs with pt. Triglycerides 218. TC 220. LDL 111.HDL 66. He is on fenofibrate 160mg daily. Blood pressure today 124/82, 108p. He is on losartan 100mg daily. [facility] Medical History (Updated 11/02/24 @ 09:13 by Brandon Moore) High blood pressure Surgical History (Updated 10/28/23 @ 09:20 by Charis Perez [facility]) No pertinent past surgical history Family History Father Heart attack No family history of mental disorder Mother No family history of mental disorder Lung cancer Social History (Updated 11/02/24 @ 09:03 by Lesley Yu MA) Housing: House Alcohol intake: current Patient Tobacco Use Status: Never used Tobacco e-Cigarette/Vaping Use: Never Used Second Hand Smoke Exposure: No service: No Current occupational status: employed 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 1. Little interest or pleasure in doing things: not at all 2. Feeling down, depressed, or hopeless: not at all 3. Trouble falling or staying asleep, or sleeping too much: not at all 4. Feeling tired or having little energy: not at all 5. Poor appetite or overeating: not at all 6. Feeling bad about yourself - or that you are a failure or have let yourself or your family down: not at all 7. Trouble concentrating on things, such as reading the newspaper or watching television: not at all 8. Moving or speaking so slowly that other people could have noticed. Or the opposite - being so fidgety or restless that you have been moving around a lot more than usual: not at all 9. Thoughts that you would be better off or of hurting yourself in some way: not at all Total score: 0 Depression Screening Interpretation: Negative Depression Screening Done: Yes 70832 - PHQ-9 Billing: Yes Source: Developed by Drs. James Hollingsworth, Page Casas, Arjun Pond and colleagues, with an educational yue from [email or web address]. Thrive Questionnaire Date Thrive assessed: 11/02/24 I am a: Patient What is your living situation today?: I have a steady place to live Within the past 12 months, did the food you bought not last and you didn't have the money to get more?: I choose not to answer this question Within the past 12 months, did you worry whether your food would run out before you got money to buy more?: I choose not to answer this question Do you have trouble paying for medicines?: I choose not to answer this question Do you have trouble getting transportation to medical appointments?: No Do you have trouble paying your heating and electricity bill?: No Do you have trouble taking care of your child, family member or friend?: No Do you have trouble with day-to-day activities such as bathing, preparing meals, shopping, managing finances, etc.?: No Are you currently unemployed and looking for a job?: No Are you interested in more education?: No Please select the resources that you would like help with: None Currently or been in a relationship where the following occur: No concerns reported THRIVE Score: 0 AUDIT C Alcohol Use Questionnaire (AUDIT-C) 1. How often do you have a drink containing alcohol?: 2-3 times a week 2. How many drinks containing alcohol do you have on a typical day when you are drinking?: 3 or 4 3. How often do you have six or more drinks on one occasion?: Never Total Score: 4 DARSHANA-7 AMB Questionnaire DARSHANA-7 Date DARSHANA - 7 assessed: 11/02/24 Feeling nervous, anxious, or on edge: 0 = Not at all Not being able to stop or control worryin = Not at all Worrying too much about different things: 0 = Not at all Trouble relaxin = Not at all Being so restless that it is hard to sit still: 0 = Not at all Becoming easily annoyed or irritable: 0 = Not at all Feeling afraid as if something awful might happen: 0 = Not at all Total DARSHANA-7 score (0-4 normal; 5-9 mild; 10-14 moderate; 15-21 severe): 0 Source: Developed by Drs. James Hollingsworth, Page Casas, Arjun Pond and colleagues, with an educational yue from [email or web address]. DARSHANA-7 Assessment Billing DARSHANA-7 Assessment Tool: DARSHANA-7 Assessment 12864 Review of Systems Const Denies chills, Denies fatigue, Denies fever(s), Denies headache(s) and Denies weakness Eyes Denies change in vision ENT Denies dizziness, Denies headache(s), Denies hearing loss, Denies nasal congestion, Denies sinus pain, Denies sinus pressure and Denies sore throat Card Denies chest pain, Denies lightheadedness, Denies dyspnea and Denies other (palpitations) Resp Denies cough, Denies dyspnea and Denies wheezing GI Denies abdominal pain, Denies melena, Denies hematochezia, Denies change in bowel habits, Denies dyspepsia and Denies nausea Denies hematuria and Denies dysuria Musc Denies abnormal gait, Denies myalgias, Denies arthralgias, Denies numbness and Denies tingling Skin/Breast Denies rash, Denies unusual bruising and Denies wounds Neuro Denies abnormal gait, Denies dizziness, Denies headache(s), Denies memory loss, Denies numbness, Denies Sensory deficit (Neuro), Denies tingling and Denies weakness Psych Denies anxiety, Denies depression and Denies memory loss Endo Denies cold intolerance, Denies fatigue, Denies heat intolerance, Denies polydipsia and Denies polyuria Loc/Lymph Denies easy bleeding and Denies easy bruising Aller/Immun Denies wheezing Physical exam (Primary Care) Vital Signs: Last Vital Signs Temp 98.5 F 11/02/24 09:06 Pulse 108 H 11/02/24 09:06 Resp 14 11/02/24 09:06 BP 124/82 11/02/24 09:06 Pulse Ox 98 11/02/24 09:06 Oxygen Delivery Method Room Air 11/02/24 09:06 BMI result Body Mass Index 29.7 Tobacco/Smoking Status: Tobacco use Status Tobacco use date assessed 11/02/24 11/02/24 09:03 Patient Tobacco Use Status Never used Tobacco 11/02/24 09:03 e-Cigarette/Vaping Use Never Used 11/02/24 09:03 PHQ-9: PHQ-9 Score PHQ-9: Total score 0 11/02/24 09:09 Depression Screening Interpretation: Negative Thrive Assessment: Date of Thrive Assessment Date Thrive assessed 11/02/24 11/02/24 09:09 Currently or been in a relationship where the following occur: No concerns reported Const General: no acute distress, well developed, alert and awake Nutritional Appearance: well nourished Orientation/consciousness: patient oriented x3 HENMT Head: Yes normocephalic and Yes atraumatic Ears: hearing grossly normal bilaterally and TM's normal bilaterally General nose exam: Normal external nose present and Normal nares present Mouth: Normal oral and palatal mucosa present and moist mucous membranes Teeth and gingiva: dentition normal Throat: Yes posterior oropharynx normal Eyes General: appearance normal, both eyes and all related structures Pupils: Equal, round and reactive pupils present and Pupil accommodation reflex normal EOM: EOMs intact bilaterally Neck Neck: Yes normal visual inspection, Yes no lymphadenopathy and Yes trachea midline Thyroid: Thyroid normal Carotids: no bruits Lymphatic: no lymphadenopathy noted Chest Chest palpation & inspection: normal inspection of the chest Resp Effort & Inspection: normal respiratory effort Auscultation: clear to auscultation bilaterally Cardio Rate: regular rate Rhythm: regular rhythm Heart sounds: S1 normal heart sound present, S2 normal heart sound present, no gallops, no murmurs and no rubs Bruits: no abdominal aortic bruits and no carotid bruits GI Palpation (GI): No Abdominal aortic bruit present, Soft to palpation, nontender, No hepatosplenomegaly present and No Rebound tenderness present Auscultation: normal bowel sounds General: Yes no CVA tenderness Back/Spine/Pelvis Back: no CVA tenderness Cervical Spine: cervical ROM normal and No Cervical spine tenderness Thoracic/Lumbar Spine: thoraco-lumbar ROM normal, No pain with thoraco-lumbar ROM, No thoracic spinal tenderness and No lumbar spinal tenderness Skin Lesions: no lesions Rashes: no rashes Trauma: no lacerations or abrasions Wounds: no wounds Nails: normal Neuro General: patient oriented x3 Cranial nerves: Yes Equal, round and reactive pupils present Cognition (Neuro): normal cognition Gait exam (Neuro): Normal gait present Motor exam (neuro): 5/5 motor strength present throughout Sensory Exam: No Sensory deficit (Neuro) Deep tendon reflexes (DTR's): Right patellar reflex intensity grade: 2+ and Left patellar reflex intensity grade: 2+ Extrem General: Yes normal to inspection and No edema Psych Appearance: grossly normal Affect: normal affect Attitude: cooperative Thought process: Normal thought process present Coding Level of Care Code Est Pt Prev Care 40-64y(76419) Diagnoses Adult general medical exam Z00.00 Hyperlipidemia E78.5 HTN, goal below 140/90 I10 Screening for prostate cancer Z12.5 Additional Codes DARSHANA-7 Assessment Billing - DARSHANA-7 Assessment Tool: DARSHANA-7 Assessment 98240 ([id number]) PHQ-9 - 57097 - PHQ-9 Billing: Yes ([id number]) Assessment & Plan Assessment & Plan (1) Adult general medical exam: Code(s): Z00.00 - Encounter for general adult medical examination without abnormal findings Category: Medical Plan: 39-year-old male presents for complete physical exam Encouraged healthy diet with active lifestyle and plenty of exercise (2) Hyperlipidemia: Code(s): E78.5 - Hyperlipidemia, unspecified Category: Medical Plan: Triglycerides still elevated but much improved with fenofibrate. Will continue fenofibrate Encouraged a diet lower in saturated fats and cholesterol Encouraged further weight loss (3) HTN, goal below 140/90: Code(s): I10 - Essential (primary) hypertension Category: Medical Plan: Blood pressure is controlled. Goal is less than 140/90 Continue current medication (4) Screening for prostate cancer: Code(s): Z12.5 - Encounter for screening for malignant neoplasm of prostate Category: Medical Plan: PSA is within limits . Will continue annual screening Orders: Orders Lipid Panel Today E78.1 - Pure hyperglyceridemia, Z00.00 - Encounter for gene ral adult medical examination without abnormal findings Comprehensive [place]. Panel Fast Today E78.1 - Pure hyperglyceridemia, Z00.00 - Encounter for general adult medical examination without abnormal findings Hemoglobin A1c Today R73.01 - Impaired fasting glucose
[2024-11-02 09:06] VITALS: BP 124/82; PULSE 108; RESP 14; TEMP 36.9; O2SAT 98; BMI 29.7
== END 2024-11-02 09:24 | disposition home or self-care (01) ==
LOC: HO.HMCFM 08:57
PROVIDERS: PCP Family Medicine; Visit Provider Family Medicine
DX: Z00.00 Encounter for general adult medical examination without abnormal findings (principal); E78.5 Hyperlipidemia, unspecified; I10 Essential (primary) hypertension; Z12.5 Encounter for screening for malignant neoplasm of prostate

== ENCOUNTER → 2024-11-02 08:56 | Outpatient (BNVA) | payer OTHER, SELFPAY | PROVIDERS: PCP Family Medicine; Visit Provider Family Medicine | DX: Z00.00 Encounter for general adult medical examination without abnormal findings (principal); E87.1 Hypo-osmolality and hyponatremia; I10 Essential (primary) hypertension; R73.01 Impaired fasting glucose | CPT/HCPCS: 96127 ==